=== PATIENT | female | born 1955 | race Caucasian/White ===

== ENCOUNTER 2018-02-12 12:40 | Emergency (ER) | payer MEDICARE ==
[2018-02-12 13:18] VITALS: BP 129/65; PULSE 101; TEMP 99.8; BMI 30.2
--- NOTE | 2018-02-12 13:48 | PDOC ---
History of Present Illness - General Chief Complaint: Pain, Acute Stated Complaint: PAIN Time Seen by Provider: 02/12/18 13:35 History Source: Patient, Unavil. due to pt. cond. - History of Present Illness Initial Comments: 02/12/18 13:48 Patient came for evaluation of acute on chronic low back pain. States had onset of severe right-sided lumbar spine pain. Was seen by PMD L and instructed use Tylenol for pain relief and is pending an MRI. Has had no relief with Tylenol, and pain is progressively worsening. Called her private physician today and was instructed to come to the emergency department Occurred: reports: last week Severity: reports: moderate Pain Location: reports: back Method of Injury: Yes: unknown Modifying Factors: improves with: None Associated Symptoms (Fall): denies symptoms Past History - Travel Traveled outside of the country in the last 30 days: No Close contact w/someone who was outside of country & ill: No - Past Medical History Allergies/Adverse Reactions: Allergies Allergy/AdvReac Type Severity Reaction Status Date / Time No Known Drug Allergies Allergy Verified 02/12/18 13:11 Home Medications: Ambulatory Orders Acetaminophen [Tylenol -] 1,000 mg PO Q6H PRN 02/12/18 Acetaminophen [Tylenol] 650 mg PO Q6H #50 capsule 02/12/18 Cyclobenzaprine HCl 10 mg PO Q8H PRN #14 tablet 02/12/18 Lorazepam [Ativan] 0.5 mg PO DAILY 02/12/18 Anemia: No Asthma: No Cancer: No Cardiac Disorders: No CVA: No COPD: No CHF: No Dementia: No Diabetes: No GI Disorders: Yes (GERD, CONSTIPATION,SMALL SESSILE SERRATED ADENOMAS) Disorders: No HTN: No Hypercholesterolemia: No Liver Disease: No Seizures: No Thyroid Disease: No - Surgical History Abdominal Surgery: No Appendectomy: No Cardiac Surgery: No Cholecystectomy: Yes (LAPAROSCOPIC) Lung Surgery: No Neurologic Surgery: No Orthopedic Surgery: Yes (ARTHrOSCOPY RIGHT KNEE, LT SHOULDER) - Suicide/Smoking/Psychosocial Hx Smoking History: Unknown if ever smoked Have you smoked in the past 12 months: No Hx Alcohol Use: Yes (OCCASIONAL) Drug/Substance Use Hx: No Substance Use Type: None Hx Substance Use Treatment: No Review of Systems - Review of Systems Able to Perform ROS?: Yes Is the patient limited Wallisian proficient: Yes Constitutional: Yes: Symptoms Reported, See HPI, Malaise HEENTM: Yes: See HPI. No: Symptoms Reported Respiratory: Yes: See HPI. No: Symptoms reported Musculoskeletal: Yes: Symptoms Reported, See HPI Neurological: Yes: Symptoms reported, See HPI, Paresthesia All Other Systems: Reviewed and Negative *Physical Exam - Vital Signs Last Vital Signs Temp Pulse Resp BP Pulse Ox 99.8 F H 101 H 20 129/65 100 02/12/18 13:16 02/12/18 13:16 02/12/18 13:16 02/12/18 13:16 02/12/18 13:16 - Physical Exam General Appearance: Yes: Nourished, Appropriately Dressed, Apparent Distress HEENT: positive: [place], Normal ENT Inspection, TMs Normal, Pharynx Normal, Rhinorrhea Neck: positive: Normal Thyroid, Supple. negative: Tender Respiratory/Chest: positive: Normal Breath Sounds Gastrointestinal/Abdominal: positive: Tender, Soft Musculoskeletal: positive: Normal Inspection, Muscle Spasm (tender tight musculature to the paravertebral spinous muscles the lumbar spine worse on the right than the left. Has no true bone tenderness crepitus or step-offs. Is ambulatory but has significant tenderness radiating pain through gluteus and down posterior aspect of right leg, sciatic distribution. And walks with a list to the right. Neurovascular intact to foot) Extremity: positive: Normal Range of Motion Integumentary: positive: Normal Color, Dry, Warm. negative: Rash Neurologic: positive: wafer cutter II-XII NML intact, Fully Oriented, Alert, Normal Mood/ Affect, Normal Response Moderate Sedation - Procedure Monitoring Vital Signs: Procedure Monitoring Vital Signs Temperature 99.8 F H 02/12/18 13:16 Pulse Rate 101 H 02/12/18 13:16 Respiratory Rate 20 02/12/18 13:16 Blood Pressure 129/65 02/12/18 13:16 O2 Sat by Pulse Oximetry (%) 100 02/12/18 13:16 Progress Note - Progress Note Progress Note: Acute on chronic back pain, we'll treat with Tylenol as patient has gastritis , and cyclobenzaprine *DC/Admit/Observation/Transfer Diagnosis at time of Disposition: Acute exacerbation of chronic low back pain - Discharge Dispostion Disposition: HOME Condition at time of disposition: Stable Decision to Admit order: No - Referrals Referrals: Ethan Andre MD [Staff Physician] - - Patient Instructions Printed Discharge Instructions: DI for Back Pain With Sciatica Additional Instructions: Rest, no heavy lifting or exercise until pain is resolved Hot soaks to neck and low back as often as possible/hot showers or Jacuzzis No massage or therapy until spasm is gone Continue Tylenol 2500 milligrams tablets every 4-6 hours for the next 3 days then as needed for pain and swelling Cyclobenzaprine 1-10mg every 8 hours as needed for spasm If not significant improvement within 24 hours with medication and rest regime, followup with private physician for change in medications and /or therapy. - Post Discharge Activity
[2018-02-12] MEDS ORDERED: KETOROLAC TROMETHAMINE 60 MG/2 ML VIAL IM ONE (13:50)
[2018-02-12] MEDS ORDERED: KETOROLAC TROMETHAMINE 60 MG/2 ML VIAL ONE (13:52)
== END 2018-02-12 14:15 | disposition home or self-care (01) ==
LOC: JERFT 12:40
PROC: 3E0233Z Introduction of Anti-inflammatory into Muscle, Percutaneous Approach (ICD-10-PCS; principal; 2018-02-12)
DX: M54.5 Low back pain (principal); G89.29 Other chronic pain; K21.9 Gastro-esophageal reflux disease without esophagitis; K59.00 Constipation, unspecified
CPT/HCPCS: 96372; 99281-25

== ENCOUNTER 2018-06-11 10:34 | Emergency (ER) | payer BC, OTHER ==
[2018-06-11 10:46] VITALS: TEMP 98.6; BMI 26.7
[2018-06-11] MEDS ORDERED: ALPRAZolam 0.25 MG TABLET PO ONE (11:22)
[2018-06-11] MEDS ORDERED: MAG HYDROX/AL HYDROX/SIMETH -MYLANTA- ORAL SUSPENSION PO ONE (11:22)
[2018-06-11] MEDS ORDERED: FAMOTIDINE 20 MG/50 ML IVPB 20 MG/50 ML MG IVPB ONE ×2 (11:22→11:43)
[2018-06-11] MEDS ORDERED: ACETAMINOPHEN 1000 MG/100 ML VIAL (NON FORMULARY) IVPB ONE (11:23)
--- NOTE | 2018-06-11 11:30 | PDOC ---
History of Present Illness <Ailyn Lal - Last Filed: 06/11/18 14:20> - General History Source: Patient - History of Present Illness Initial Comments: 06/11/18 11:25 Patient is a 63 y/o female with a history of GERD, anxiety, constipation, and chronic pain who presents for chest pain. Patient reports she has left sided chest pain that began on thursday. It has been continuous and worsening. She reports it is a sharp pain. She reports she took tylenol but it did not help. She was recently at [facility] two weeks ago for pain. She was then told to see a pain specialist who gave her an injection. The injection helped for a little bit but the pain returned. She notes she is nauseous, has some burning in her throat, and has back pain. She denies smoking, drinking, or any cardiovascular history. Patient has no other acute complaints. <Isabel Rodrigues - Last Filed: 06/11/18 15:07> - General Chief Complaint: Chest Pain Stated Complaint: CHEST PAIN Time Seen by Provider: 06/11/18 10:52 Past History <Ailyn Lal - Last Filed: 06/11/18 14:20> - Past Medical History Anemia: No Asthma: No Cancer: No Cardiac Disorders: No CVA: No COPD: No CHF: No Dementia: No Diabetes: No GI Disorders: Yes (GERD) Disorders: No HTN: No Hypercholesterolemia: No Liver Disease: No Psychiatric Problems: Yes (ANXIETY) Seizures: No Thyroid Disease: No - Surgical History Abdominal Surgery: No Appendectomy: No Cardiac Surgery: No Cholecystectomy: Yes (LAPAROSCOPIC) Lung Surgery: No Neurologic Surgery: No Orthopedic Surgery: Yes (ARTHrOSCOPY RIGHT KNEE, LT SHOULDER) - Suicide/Smoking/Psychosocial Hx Smoking History: Never smoked Have you smoked in the past 12 months: No Information on smoking cessation initiated: No Hx Alcohol Use: No Drug/Substance Use Hx: No Substance Use Type: None Hx Substance Use Treatment: No <Isabel Rodrigues - Last Filed: 06/11/18 15:07> - Past Medical History Allergies/Adverse Reactions: Allergies Allergy/AdvReac Type Severity Reaction Status Date / Time No Known Drug Allergies Allergy Verified 06/11/18 10:46 Home Medications: Ambulatory Orders Acetaminophen [Tylenol -] 1,000 mg PO Q6H PRN 02/12/18 Cyclobenzaprine HCl 10 mg PO Q8H PRN #14 tablet 02/12/18 Lorazepam [Ativan] 1 mg PO HS 02/12/18 Review of Systems - Review of Systems Constitutional: No: Chills, Fever HEENTM: No: Eye Pain Respiratory: No: Cough, Shortness of Breath Cardiac (ROS): Yes: Chest Pain ABD/GI: No: Abdominal Distended, Constipated, Diarrhea, Nausea, Vomiting : No: Burning, Dysuria Musculoskeletal: Yes: Back Pain Integumentary: No: Bruising Neurological: Yes: Headache. No: Numbness <Isabel Rodrigues - Last Filed: 06/11/18 15:07> *Physical Exam - Vital Signs Last Vital Signs Temp Pulse Resp BP Pulse Ox 98.6 F 88 17 123/78 97 06/11/18 10:42 06/11/18 14:11 06/11/18 14:11 06/11/18 14:11 06/11/18 14:11 <Ailyn Lal - Last Filed: 06/11/18 14:20> - Vital Signs Last Vital Signs Temp Pulse Resp BP Pulse Ox 98.6 F 91 H 17 145/83 100 06/11/18 10:42 06/11/18 10:42 06/11/18 10:42 06/11/18 10:42 06/11/18 11:16 - Physical Exam Comments: 06/11/18 11:28 GENERAL: A&O x3, tearful throught exam EYES: EOMI HEART: RRR, no murmurs, rubs, or gallops hears, tender to palpation of chest LUNGS: CTAL B/L MSK: tenderness above left scapula, chest tender to palpation, arm tender to palpation R arm ROM intact EXTREMITIES: no pitting edema SKIN: without rashes or ulcers <Isabel Rodrigues - Last Filed: 06/11/18 15:07> ED Treatment Course - LABORATORY CBC & Chemistry Diagram: 06/11/18 11:16 06/11/18 11:16 - ADDITIONAL ORDERS Additional order review: Laboratory Results 06/11/18 06/11/18 13:25 11:16 Sodium 133 L Potassium 3.7 Chloride 101 Carbon Dioxide 27 Anion Gap 5 L BUN 10 Creatinine 0.5 L Creat Clearance w eGFR 124.61 Random Glucose 82 Calcium 9.5 Total Bilirubin 0.5 AST 17 ALT 34 Alkaline Phosphatase 86 Troponin I 0.02 0.02 Total Protein 7.3 Albumin 3.1 L 06/11/18 11:16 RBC 4.33 MCV 88.9 MCHC 32.5 RDW 14.3 D MPV 7.0 L Neutrophils % 78.5 D Lymphocytes % 11.0 D Monocytes % 9.7 Eosinophils % 0.2 D Basophils % 0.6 - RADIOLOGY Radiology Studies Ordered: Category Date Time Status CHEST PA & LAT [RAD] Stat Radiology 06/11/18 11:15 Completed - Medications Given in the ED: ED Medications Discontinued Medications Generic Name Dose Route Start Last Admin Trade Name Freq PRN Reason Stop Dose Admin Acetaminophen 1,000 mg 06/11/18 11:23 06/11/18 11:49 Ofirmev Injection - IVPB 06/11/18 11:24 1,000 mg ONCE ONE Administration Al Hydroxide/Mg Hydroxide 30 ml 06/11/18 11:22 06/11/18 11:48 Mylanta Suspension - PO 06/11/18 11:23 30 ml ONCE ONE Administration Alprazolam 0.5 mg 06/11/18 11:22 06/11/18 11:49 Xanax - PO 06/11/18 11:23 Not Given ONCE ONE Famotidine/Sodium Chloride 20 mg in 50 mls @ 100 mls/hr 06/11/18 11:22 11:49 Pepcid 20 Mg Premixed Ivpb - IVPB 06/11/18 11:51 100 mls/hr ONCE ONE Administration <Ailyn Lal - Last Filed: 06/11/18 14:20> - LABORATORY CBC & Chemistry Diagram: 06/11/18 11:16 06/11/18 11:16 <Isabel Rodrigues - Last Filed: 06/11/18 15:07> Medical Decision Making - Medical Decision Making 06/11/18 11:29 EKG: no ST elevations or depressions, without abnormalities, QTC: 427 f/u labs, CXR maalox, pepcid, IV tylenol, for pain, xanax for anxiety 06/11/18 14:16 trop negative x 2 CXR WNL symptoms improved with medication vitals stable for DC 2nd EKG WNL <Isabel Rodrigues - Last Filed: 06/11/18 15:07> *DC/Admit/Observation/Transfer <Ailyn Lal - Last Filed: 06/11/18 14:20> <Isabel Rodrigues - Last Filed: 06/11/18 15:07> Diagnosis at time of Disposition: Chronic pain Qualifiers: Chronic pain type: chronic pain syndrome Qualified Code(s): G89.4 - Chronic pain syndrome Chest pain Qualifiers: Chest pain type: unspecified Qualified Code(s): R07.9 - Chest pain, unspecified - Discharge Dispostion Disposition: HOME Condition at time of disposition: Good - Referrals Referrals: Tatum De La Rosa MD [Primary Care Provider] - - Patient Instructions Printed Discharge Instructions: DI for Atypical Chest Pain, DI for Chronic Pain -- Adult Additional Instructions: You presented to the Emergency Department with chest pain. We took an EKG of your heart and looked at your blood, we did not find any abnormalities. We took an Xray of your chest and also did not find any abnormalities. Please make a follow up appointment with your pain management doctor. Please make a follow up with your primary care doctor for further management. You can take tylenol or motrin for your pain, do not exceed the maximum amount as stated ont he bottle. Return to the Emergency department if you have worsening chest pain, difficulty breathing, nausea, vomiting, dizziness, fevers, or change in vision. - Post Discharge Activity
[2018-06-11 11:32] LABS: BASO % 0.6 % (0-2.0); EOS % 0.2 % (0-4.5); HEMATOCRIT 38.5 % (32.4-45.2); HEMOGLOBIN 12.5 GM/dL (10.7-15.3); MCH 28.9 pg (25.7-33.7); MCHC 32.5 g/dl (32.0-36.0); MEAN CELL VOLUME 88.9 fl (80-96); MONO % 9.7 % (3.8-10.2); NEUT % 78.5 % (42.8-82.8); PLATELET COUNT 336 K/MM3 (134-434); RBC 4.33 M/mm3 (3.60-5.2); RDW 14.3 % (11.6-15.6); WHITE BLOOD COUNT 8.1 K/mm3 (4.0-10.0)
[2018-06-11] MEDS ORDERED: MAG HYDROX/AL HYDROX/SIMETH 30 ML UNIT-DOSE CUP ONE (11:43)
[2018-06-11] MEDS ORDERED: ALPRAZolam 0.25 MG TABLET ONE (11:43)
[2018-06-11] MEDS ORDERED: ACETAMINOPHEN INJECTION 100 ML IVPB ONE (11:43)
[2018-06-11 12:01] LABS: ALBUMIN 3.1 g/dl (3.4-5.0); ALK PHOS 86 U/L (45-117); ANION GAP 5 MMOL/L (8-16); BILIRUBIN,TOTAL 0.5 mg/dL (0.2-1); BLOOD UREA NITROGEN 10 mg/dL (7-18); CALCIUM 9.5 mg/dL (8.5-10.1); CHLORIDE 101 mmol/L (98-107); CO2 27 mmol/L (21-32); CREATININE 0.5 mg/dL (0.55-1.3); GLUCOSE,RANDOM 82 mg/dL (74-106); POTASSIUM 3.7 mmol/L (3.5-5.1); SGOT/AST 17 U/L (15-37); SGPT/ALT 34 U/L (13-61); SODIUM 133 mmol/L (136-145); TOT PROT 7.3 g/dl (6.4-8.2)
--- NOTE | 2018-06-11 12:01 | PDOC ---
Attending Attestation - Resident Resident Name: Isabel Rodrigues - ED Attending Attestation I have performed the following: I have examined & evaluated the patient, The case was reviewed & discussed with the resident, I agree w/resident's findings & plan - HPI HPI: 06/11/18 11:58 The patient is a 63 year old female, with a significant PMH of GERD, anxiety, and chronic pain, who presents to the emergency department for evaluation of constant, progressively worsening chest pain radiating to left arm since Thursday. Patient notes burning in her throat consistent with reflux symptoms. She reports taking Tylenol with no relief. Patient states she has been receiving shots for her chronic back pain, which have not been helping and the chest pain began soon after. denies trauma. Denies fever, chills, SOB, palpitation, dizziness, weakness, N, V, D, abdominal pain, bladder and bowel problems, leg swelling, No sick contacts or travel. No new changes in medications. Allergies: None Past Medical History: GERD Social history: Lives with family. No tobacco, ETOH or drug use. - Physicial Exam PE: 06/11/18 11:59 NAD, mildly anxious PERRL, EOMI, MMM, nl conjunctiva, anicteric; neck supple. lungs clear, RRR, reproducible sternal CP/mouth pain. abdomen soft nontender. CHAMORRO x4, no focal neuro deficits. No peripheral edema. normal color for ethnicity , WWP. no calf tenderness or swelling - Medical Decision Making 06/11/18 11:59 See HPI for details Vital signs reviewed, wnl. Considered but clinically doubt based on HPI and PE: No evidence of ACS, pericarditis, myocarditis, pulmonary embolism, pneumothorax, pneumonia, Zoster, or esophageal perforation. Historically not abrupt in onset, tearing or ripping , pulses symmetric, no evidence of aortic dissection. Prior notes reviewed, including admissions, discharges and consultations. laboratory results and imaging reviewed, basic labs and lytes wnl, . CXR_no acute chest pathology Cardiac panel_negative trop x1. serial trop neg, so doubt cardiac EKG normal sinus rhythm at 92 bpm, no interval abnormalities, narrow QRS, ST and T wave segments and morphology normal. Nonspecific T wave abnormalities similar to prior EKGs ED course - given GI cocktail with effect. declined xanax for anxiolysis, as she was tearful with resident prior to my assessment. there is reproducible component, given appropriate analgesia repeat trop neg, so less likely ACS or cardiac etiology repeat EKG NSR at 93 bpm, same and unchanged. most likely gerd vs anxiety related sx, no other risk factors to suggest cardiac etiology, heart score low risk ~1 for age, so rate of MACE <1.7% at 6 w. Dispo: Pt informed of my clinical impression, treatment recommendations and disposition plan. All questions answered to patient's satisfaction and expressed understanding and comfort with this. Reasons for returning to the ED sooner discussed with the patient otherwise, follow up with primary care physician. At the time of discharge, the patient is alert, clinically improved, tolerating po and verbalizes understanding of instructions. Patient does not suffer from an acute life-threatening medical condition at this time she is safe for outpatient follow-up. 06/11/18 12:02 06/11/18 14:14 06/11/18 14:31 Heart Score/ECG Review - History History: Slightly suspicious - Electrocardiogram EKG: Normal - Age Age: 45-65 - Risk Factors Based on the list above the patient has:: No risk factors known - Troponin Troponin: </= normal limit - Score Heart Score - Total: 1 #1 ECG reviewed & interpreted by me at: 10:40 General ECG Interpretation: Sinus Rhythm Compared to previous ECG there are: No significant change 06/11/18 12:01 EKG normal sinus rhythm at 92 bpm, no interval abnormalities, narrow QRS, ST and T wave segments and morphology normal. Nonspecific T wave abnormalities similar to prior EKGs
[2018-06-11 14:12] VITALS: BP 123/78; PULSE 88
--- NOTE | 2018-06-14 11:14 | EKG ---
Test Reason : Blood Pressure : / mmHG Vent. Rate : 093 BPM Atrial Rate : 093 BPM P-R Int : 150 ms QRS Dur : 084 ms QT Int : 360 ms P-R-T Axes : 051 049 030 degrees QTc Int : 447 ms NORMAL SINUS RHYTHM CANNOT RULE OUT ANTERIOR INFARCT (CITED ON OR BEFORE 11-JUN-2018) ABNORMAL ECG WHEN COMPARED WITH ECG OF 11-JUN-2018 10:38, NO SIGNIFICANT CHANGE WAS FOUND Confirmed by ADRIANNE VILLALOBOS, EBONIE ([id number]) on 06/14/2018 11:13:53 AM Referred By: Confirmed By:EBONIE SILVER MD
--- NOTE | 2018-06-14 11:21 | EKG ---
Test Reason : Blood Pressure : / mmHG Vent. Rate : 092 BPM Atrial Rate : 092 BPM P-R Int : 156 ms QRS Dur : 082 ms QT Int : 346 ms P-R-T Axes : 057 059 040 degrees QTc Int : 427 ms NORMAL SINUS RHYTHM POSSIBLE ANTERIOR INFARCT , AGE UNDETERMINED ABNORMAL ECG WHEN COMPARED WITH ECG OF 04-MAR-2016 11:26, NO SIGNIFICANT CHANGE WAS FOUND Confirmed by EBONIE SILVER MD ([id number]) on 06/14/2018 11:21:04 AM Referred By: Confirmed By:EBONIE SILVER MD
== END 2018-06-11 14:45 | disposition home or self-care (01) ==
LOC: JER 10:34
PROC: 3E033NZ Introduction of Analgesics, Hypnotics, Sedatives into Peripheral Vein, Percutaneous Approach (ICD-10-PCS; principal; 2018-06-11)
PROC: 3E033GC Introduction of Other Therapeutic Substance into Peripheral Vein, Percutaneous Approach (ICD-10-PCS; 2018-06-11)
DX: R07.9 Chest pain, unspecified (principal); G89.4 Chronic pain syndrome
CPT/HCPCS: 36415; 71046-TC-FY; 80053; 84484; 85025; 93005; 93010; 96365; 96375; 99285-25; J0131

== ENCOUNTER 2019-03-16 16:50 | Emergency (ER) | payer BC ==
[2019-03-16] MEDS ORDERED: ONDANSETRON 4 MG/2 ML VIAL IVPUSH ONE (17:21)
[2019-03-16 17:22] VITALS: BMI 27.4
[2019-03-16] MEDS ORDERED: MAG HYDROX/AL HYDROX/SIMETH 30 ML UNIT-DOSE CUP PO ONE (17:22)
[2019-03-16] MEDS ORDERED: SODIUM CHLORIDE 1,000 ML IV STA (17:22)
--- NOTE | 2019-03-16 17:23 | PDOC ---
History of Present Illness - General History Source: Patient Exam Limitations: No Limitations <Kerry Monique - Last Filed: 03/17/19 20:10> <Judd Wagner - Last Filed: 03/19/19 17:39> - General Stated Complaint: ABD PAIN Time Seen by Provider: 03/16/19 17:19 Past History - Travel Traveled outside of the country in the last 30 days: No Close contact w/someone who was outside of country & ill: No - Past Medical History Anemia: No Asthma: No Cancer: No Cardiac Disorders: No CVA: No COPD: No CHF: No Dementia: No Diabetes: No GI Disorders: Yes (GERD) Disorders: No HTN: No Hypercholesterolemia: No Liver Disease: No Psychiatric Problems: Yes (ANXIETY) Seizures: No Thyroid Disease: No - Surgical History Abdominal Surgery: No Appendectomy: No Cardiac Surgery: No Cholecystectomy: Yes (LAPAROSCOPIC) Lung Surgery: No Neurologic Surgery: No Orthopedic Surgery: Yes (ARTHrOSCOPY RIGHT KNEE, LT SHOULDER) - Psycho Social/Smoking Cessation Hx Smoking History: Never smoked Have you smoked in the past 12 months: No Hx Alcohol Use: No Drug/Substance Use Hx: No Substance Use Type: None Hx Substance Use Treatment: No <Kerry Monique - Last Filed: 03/17/19 20:10> <Judd Wagner - Last Filed: 03/19/19 17:39> - Past Medical History Allergies/Adverse Reactions: Allergies Allergy/AdvReac Type Severity Reaction Status Date / Time No Known Drug Allergies Allergy Verified 06/11/18 10:46 Home Medications: Ambulatory Orders Acetaminophen [Tylenol -] 1,000 mg PO Q6H PRN 02/12/18 Famotidine [Pepcid -] 20 mg PO DAILY #7 tablet 03/16/19 Ibuprofen 600 mg PO Q6H #30 tablet 03/16/19 Ondansetron [Zofran Odt -] 4 mg SL TID #10 od.tablet 03/16/19 Review of Systems - Review of Systems Able to Perform ROS?: Yes Comments:: 03/16/19 20:10 CONSTITUTIONAL: Absent: fever, chills, diaphoresis, generalized weakness, malaise, loss of appetite HEENT: Absent: rhinorrhea, nasal congestion, throat pain, throat swelling, difficulty swallowing, mouth swelling, ear pain, eye pain, visual Changes CARDIOVASCULAR: Absent: chest pain, loss of consciousness, palpitations, irregular heart rate, peripheral edema RESPIRATORY: Absent: cough, shortness of breath, dyspnea with exertion, orthopnea, wheezing, stridor, hemoptysis GASTROINTESTINAL: Present: L sided abdominal pain Absent: abdominal distension, nausea, vomiting, diarrhea, constipation, melena, hematochezia GENITOURINARY: Absent: dysuria, frequency, urgency, hesitancy, hematuria, flank pain, genital pain MUSCULOSKELETAL: Absent: myalgia, arthralgia, joint swelling SKIN: Absent: rash, itching, pallor HEMATOLOGIC/IMMUNOLOGIC: Absent: easy bleeding, easy bruising, lymphadenopathy, frequent infections ENDOCRINE: Absent: unexplained weight gain, unexplained weight loss, heat intolerance, cold intolerance NEUROLOGIC: Absent: headache, focal weakness or paresthesias, dizziness, unsteady gait, seizure, mental status changes, bladder or bowel incontinence PSYCHIATRIC: Absent: anxiety, depression, suicidal or homicidal ideation, hallucinations. Is the patient limited Russian proficient: No <Kerry Monique - Last Filed: 03/17/19 20:10> *Physical Exam - Physical Exam 03/16/19 22:11 GENERAL: Well developed, well nourished. Awake and alert. No acute distress. HEENT: Normocephalic, atraumatic. PERRLA, EOMI. No conjunctival pallor. Sclera are non- icteric. Moist mucous membranes. Oropharynx is clear. NECK: Supple. Full ROM. No JVD. Carotid pulses 2+ and symmetric, without bruits. No thyromegaly. No lymphadenopathy. CARDIOVASCULAR: Regular rate and rhythm. No murmurs, rubs, or gallops. Distal pulses are 2+ and symmetric. PULMONARY: No evidence of respiratory distress. Lungs clear to auscultation bilaterally. No wheezing, rales or rhonchi. ABDOMINAL: TTP of the LUQ, epigastric area. Soft. Non-distended. No rebound or guarding. No organomegaly. Normoactive bowel sounds. MUSCULOSKELETAL Normal range of motion at all joints. No bony deformities or tenderness. No CVA tenderness. EXTREMITIES: No cyanosis. No clubbing. No edema. No calf tenderness. SKIN: Warm and dry. Normal capillary refill. No rashes. No jaundice. NEUROLOGICAL: Alert, awake, appropriate. Cranial nerves 2-12 intact. No deficits to light touch and temperature in face, upper extremities and lower extremities. No motor deficits in the in face, upper extremities and lower extremities. Normoreflexic in the upper and lower extremities. Normal speech. Toes are down- going bilaterally. Gait is normal without ataxia. PSYCHIATRIC: Cooperative. Good eye contact. Appropriate mood and affect. <Kerry Monique - Last Filed: 03/17/19 20:10> - Vital Signs Last Vital Signs Temp Pulse Resp BP Pulse Ox 98.0 F 63 16 147/77 97 03/16/19 22:30 03/16/19 22:30 03/16/19 22:30 03/16/19 22:30 03/16/19 22:30 <Judd Wagner - Last Filed: 03/19/19 17:39> ED Treatment Course - LABORATORY CBC & Chemistry Diagram: 03/16/19 18:04 03/16/19 18:04 <Kerry Monique - Last Filed: 03/17/19 20:10> - LABORATORY CBC & Chemistry Diagram: 03/16/19 18:04 03/16/19 18:04 - ADDITIONAL ORDERS Additional order review: 03/16/19 18:04 Urine Culture - Final Urine - Urine Clean Catch NO GROWTH OBTAINED 03/16/19 18:04 RBC 4.39 MCV 88.8 MCHC 33.1 RDW 12.7 D MPV 7.4 L Neutrophils % 41.6 L D Lymphocytes % 43.3 H D Monocytes % 13.0 H Eosinophils % 1.4 D Basophils % 0.7 - Medications Given in the ED: ED Medications Discontinued Medications Generic Name Dose Route Start Last Admin Trade Name Jamarcusq PRN Reason Stop Dose Admin Acetaminophen 1,000 mg 03/16/19 17:27 03/16/19 17:38 Ofirmev Injection - IVPB 03/16/19 17:28 1,000 mg ONCE ONE Administration Al Hydroxide/Mg Hydroxide 30 ml 03/16/19 17:22 03/16/19 17:38 Mylanta Oral Suspension - PO 03/16/19 17:23 30 ml ONCE ONE Administration Sodium Chloride 1,000 mls @ 1,000 mls/hr 03/16/19 17:22 03/16/19 17:38 Normal Saline - IV 03/16/19 18:21 1,000 mls/hr ASDIR STA Administration Famotidine/Sodium Chloride 20 mg in 50 mls @ 100 mls/hr 03/16/19 18:15 22:35 Pepcid 20 Mg Premixed Ivpb - IVPB Not Given BID LUCHO Ketorolac Tromethamine 15 mg 03/16/19 21:42 03/16/19 22:34 Toradol Injection - IM 03/16/19 21:43 15 mg ONCE ONE Administration Ondansetron HCl 4 mg 03/16/19 17:21 03/16/19 17:38 Zofran Injection IVPUSH 03/16/19 17:22 4 mg ONCE ONE Administration <Judd Wagner - Last Filed: 03/19/19 17:39> Medical Decision Making - Medical Decision Making 03/16/19 23:13 The patient is a 63-year-old female with past medical history of hypertension, fibromyalgia, presents to the ER today with left upper quadrant pain. She states her pain started yesterday and got worse this morning. She notes that she also has some soft stools and nausea. She also admits to nausea. She states the pain radiates to her back. Denies fevers, chills, sore throat, earache, vomiting, diarrhea and constipation. She also denies urinary symptoms. A/P: Abdominal pain On exam patient with tenderness to the left upper quadrant, epigastric region and some discomfort in the right lower quadrant. Basic labs, CTAP, EKG ordered. EKG: Rate 71 bpm, normal sinus rhythm. Normal intervals and axis. No acute ST- T wave changes. Unchanged from last EKG. Lab work shows a mildly elevated WBC count with a right shift. The rest of the lab work is unremarkable. Urine is negative for infection. CT shows no acute pathology. Symptoms improve with a GI cocktail. Likely a viral illness Discharge home with supportive therapy and primary care follow-up. I discussed the physical exam findings, ancillary test results and final diagnoses with the patient. I answered all of the patient's questions. The patient was satisfied with the care received and felt comfortable with the discharge plan and treatment plan. The Patient agrees to follow up with the primary care physician/specialist within 24-72 hours. Return precautions were given. <Kerry Monique - Last Filed: 03/17/19 20:10> - Medical Decision Making 03/19/19 17:39 I reviewed the case of the mid-level practitioner and was available for consultation while in the emergency department <Judd Wagner - Last Filed: 03/19/19 17:39> Discharge - Discharge Information Problems reviewed: Yes - Admission No <IsrealkenKerry - Last Filed: 03/17/19 20:10> <Judd Wagner - Last Filed: 03/19/19 17:39> - Discharge Information Clinical Impression/Diagnosis: Gastroenteritis Condition: Stable Disposition: HOME - Additional Discharge Information Prescriptions: Famotidine [Pepcid -] 20 mg PO DAILY #7 tablet Ibuprofen 600 mg PO Q6H #30 tablet Ondansetron [Zofran Odt -] 4 mg SL TID #10 od.tablet - Follow up/Referral Referrals: Alba Escalante MD [Primary Care Provider] - - Patient Discharge Instructions Patient Printed Discharge Instructions: DI for Viral Gastroenteritis -- Adult Additional Instructions: You have abdominal pain due to a virus. Your CT scan was normal today. Avoid all dairy products until 48 hours after the abdominal pain/vomiting/ diarrhea has resolved. Eat a bland diet including apple sauce, toast, bananas, and plain rice Drink plenty of fluids including pedialyte, watered down juices and water Follow up with your primary care doctor this week Return to the ED if you develop fevers, abdominal pain, worsening vomiting, or if you have any changes in your symptoms. - Post Discharge Activity Work/Back to School Note: Back to Work
[2019-03-16] MEDS ORDERED: ACETAMINOPHEN 1000 MG/100 ML VIAL (NON FORMULARY) IVPB ONE (17:27)
[2019-03-16] MEDS ORDERED: FAMOTIDINE 20 MG/50 ML IVPB 20 MG/50 ML MG IVPB SCH ×2 (17:35→22:00)
[2019-03-16] MEDS ORDERED: ACETAMINOPHEN INJECTION 100 ML IVPB ONE (17:36)
[2019-03-16] MEDS ORDERED: MAG HYDROX/AL HYDROX/SIMETH 30 ML UNIT-DOSE CUP ONE (17:36)
[2019-03-16] MEDS ORDERED: FAMOTIDINE 20 MG/50 ML IVPB 20 MG/50 ML MG IVPB ONE ×2 (17:36→22:19)
[2019-03-16] MEDS ORDERED: ONDANSETRON 4 MG/2 ML VIAL ONE (17:36)
[2019-03-16] MEDS: FAMOTIDINE 20 MG/50 ML IVPB 20 MG/50 ML MG IVPB SCH ×2 (18:15→22:35)
[2019-03-16 18:18] LABS: BASO % 0.7 % (0-2.0); EOS % 1.4 % (0-4.5); HEMATOCRIT 38.9 % (32.4-45.2); HEMOGLOBIN 12.9 GM/dL (10.7-15.3); LYMPH % 43.3 % (8-40); MCH 29.4 pg (25.7-33.7); MCHC 33.1 g/dl (32.0-36.0); MEAN CELL VOLUME 88.8 fl (80-96); MEAN PLT VOLUME 7.4 fl (7.5-11.1); NEUT % 41.6 % (42.8-82.8); PLATELET COUNT 287 K/MM3 (134-434); RBC 4.39 M/mm3 (3.60-5.2); RDW 12.7 % (11.6-15.6); URINE APPEARANCE CLEAR; URINE BILIRUBIN NEGATIVE (NEGATIVE); URINE COLOR YELLOW; URINE GLUCOSE (UA) NEGATIVE (NEGATIVE); URINE KETONE NEGATIVE (NEGATIVE); URINE LEUK ESTERASE NEGATIVE (NEGATIVE); URINE NITRITE NEGATIVE (NEGATIVE); URINE PROTEIN NEGATIVE (NEGATIVE); URINE UROBILINOGEN 0.2 mg/dL (0.2-1.0); WHITE BLOOD COUNT 3.4 K/mm3 (4.0-10.0)
[2019-03-16 18:49] LABS: ALBUMIN 3.7 g/dl (3.4-5.0); BILIRUBIN,TOTAL 0.2 mg/dL (0.2-1); BLOOD UREA NITROGEN 8.2 mg/dL (7-18); CREATININE 0.8 mg/dL (0.55-1.3); POTASSIUM 3.7 mmol/L (3.5-5.1); TOT PROT 7.4 g/dl (6.4-8.2)
[2019-03-16] MEDS ORDERED: KETOROLAC TROMETHAMINE 15 MG/ML VIAL IM ONE (21:42)
[2019-03-16] MEDS ORDERED: KETOROLAC TROMETHAMINE 15 MG/ML VIAL ONE (22:20)
[2019-03-16 23:16] VITALS: BP 147/77; PULSE 63; TEMP 98
--- NOTE | 2019-03-17 11:51 | EKG ---
Test Reason : Blood Pressure : / mmHG Vent. Rate : 071 BPM Atrial Rate : 071 BPM P-R Int : 164 ms QRS Dur : 080 ms QT Int : 406 ms P-R-T Axes : 061 063 055 degrees QTc Int : 441 ms NORMAL SINUS RHYTHM CANNOT RULE OUT ANTERIOR INFARCT (CITED ON OR BEFORE 11-JUN-2018) ABNORMAL ECG WHEN COMPARED WITH ECG OF 11-JUN-2018 14:20, NO SIGNIFICANT CHANGE WAS FOUND Confirmed by VERNON SOLORZANO MD ([id number]) on 03/17/2019 11:51:21 AM Referred By: Confirmed By:VERNON SOLORZANO MD
== END 2019-03-16 22:40 | disposition home or self-care (01) ==
LOC: JER 16:50
PROC: 3E033NZ Introduction of Analgesics, Hypnotics, Sedatives into Peripheral Vein, Percutaneous Approach (ICD-10-PCS; principal; 2019-03-16)
PROC: 3E0233Z Introduction of Anti-inflammatory into Muscle, Percutaneous Approach (ICD-10-PCS; 2019-03-16)
DX: K52.9 Noninfective gastroenteritis and colitis, unspecified (principal); K21.9 Gastro-esophageal reflux disease without esophagitis; F41.9 Anxiety disorder, unspecified
CPT/HCPCS: 36415; 74177-TC; 80053; 81003; 83690; 85025; 87086; 93005; 93010; 99283-25; J0131; J7030; Q9967